=== PATIENT | female | born 1995 | race Caucasian/White ===

== ENCOUNTER 2023-09-25 07:18 | Outpatient (CLI) | payer OTHER, SELFPAY ==
[2023-09-25 07:55] LABS: Basophils Percent Auto 0.5 % (0.2-1.2); Eosinophils Absolute Auto 0.1 K/mm3 (0-0.3); Eosinophils Percent Auto 1.8 % (0-4.4); Hematocrit 41.6 % (37.0-47.0); Hemoglobin 14.2 g/dL (12.0-15.0); Immature Granulocyte Absolute 0.02 K/mm3 (0.00-0.031); Immature Granulocyte Percent A 0.3 % (0-0.5); Lymphocytes Absolute Auto 1.88 K/mm3 (0.9-3.2); Lymphocytes Percent Auto 30.6 % (18.3-44.2); Mean Corpuscular HGB Conc 34.1 g/dl (32-36); Mean Corpuscular Hemoglobin 30.5 pg (26-34); Mean Corpuscular Volume 89.3 fl (80-100); Mean Platelet Volume 10.5 fl (7.4-10.4); Monocytes Absolute Auto 0.4 K/mm3 (0.1-0.6); Neutrophils Absolute Auto 3.7 K/mm3 (1.3-6.7); Neutrophils Percent Auto 60.8 % (45.5-73.1); Platelet Count Result 220 k/mm3 (150-375); Red Blood Count 4.66 M/mm3 (4.2-5.4); Red Cell Distribution Width 12.3 % (11.5-14.5); White Blood Count 6.1 K/mm3 (4.5-10.0)
[2023-09-25 08:50] LABS: Vitamin D 25 Hydroxy 41.8 ng/mL
[2023-09-28 18:03] LABS: Insulin Level Total 17.6 uIU/mL
[2023-09-29 02:54] LABS: FSH 5.6 mIU/mL; Progesterone 0.5 ng/mL; Prolactin 5.2 ng/mL
[2023-09-30 13:48] LABS: Testosterone Free 12 pg/mL (0.1-6.4); Testosterone Total 87 ng/dL (2-45)
== END 2023-09-25 07:19 | disposition home or self-care (01) ==
LOC: ANHLAB 07:22
PROVIDERS: Visit Provider Nurse Practitioner Obstetrics & Gynecology
DX: N91.2 Amenorrhea, unspecified (principal)
CPT/HCPCS: 36415; 82306; 83001; 83002; 83498; 83525; 84144; 84146; 84402; 84403; 85025

== ENCOUNTER 2024-07-18 07:53 | Outpatient (CLI) | payer OTHER, SELFPAY ==
--- OUTSIDE RECORDS SUMMARY | 2024-07-18 07:58 | XMS_ITS | Clinical Summary ---
Author Organization CC [facility] [address] Address [address] [place] [address] Phone Care Team Providers Care Dog License Officer Supervisor Name Role Phone Melissa Aguilar NP Primary Care Provider [phone] Allergies Active Allergy Reactions Criticality Noted Date Comments Penicillin V Other (See comments) Low Reaction: ?hives, Penicillins Other (See comments) Low Hives Medications No known medications Active Problems Problem Noted Date Diagnosed Date Hearing loss of left ear 09/29/2017 Assessment & Plan (09/29/2017 2:34 PM CDT): Patient with a four-month history of perceived hearing loss. Patient did undergo a complete audiogram while in the office today the right ear was within normal limits the left ear showed to be within normal limits to mild sensorineural hearing loss at the 5000 hertz pushpa. Discrimination scores were 100% bilaterally and tympanogram bilaterally showed a type a pattern. 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 Strongly advised patient to utilize hearing protection in any instance where she will be exposed to loud noise. Advised patient to repeat audiogram in 1 year to monitor for any changes. Discussed with patient that she should return to the office if she experiences any changes in her hearing. Patient does state that she feels her hearing has improved from what it was at the onset of her symptoms for months ago. Patient to follow up as needed Class 1 obesity due to exces s calories without serious comorbidity with body mass index (BMI) of 32.0 to 32.9 in adult 09/10/2017 Assessment & Plan (09/10/2017 8:12 AM CDT): Obesity is newly identified. Discussed the patient's BMI. The BMI is above average; BMI management plan is completed. General weight loss/lifestyle modification strategies discussed (elicit support from others; identify saboteurs; non-food rewards, etc). PCOS (polycystic ovarian syndrome) 09/29/2016 Folliculitis 07/27/2013 Overview (06/19/2016): Folliculitis Medical examinations/reports status 07/26/2013 Overview (06/19/2016): Health care maintenance Excessive hair growth 07/26/2013 Overview (06/19/2016): Excess body and facial hair Hyperlipidemia 07/26/2013 Overview (06/20/2016): Hyperlipidemia Adiposity 07/26/2013 Overview (06/20/2016): Obesity Resolved Problems Problem Noted Date Diagnosed Date Resolved Date Acute streptococcal pharyngitis 05/09/2015 09/10/2017 Overview (06/19/2016): Strep throat Immunizations Immunization Administration Dates Next Due DTaP 5 Pertussis 12/10/2001, 9,05/16/1998,03/21,01/10/1998 HPV, Quadrivalent 07/27/2013,12/19/2011,10/09/19 12 Hep B, Adolescent or Pediatric 05/16/1998,1997,1997 Hib (HbOC) 02/18/1999, 9,03/21/1998,01/10 IPV 12/10/2001, 9,03/21/1998,01/10 Influenza, Split 12/19/2011 Influenza, Unspecified 01/18/2017 MMR 12/10/2001,11/07/1998 Meningococcal MCV4P (Menactra) 11/29/2014 Meningococcal Polysaccharide (Menomune) 11/20/2010 Tdap 11/05/2009 Varicella 10/09/2015,11/07/1998 Family History Medical History Relation Name Comments Other Maternal Grandmother Nephrec santos; Asthma Other 4 Family history of Asthma; Lung cancer Other 5 Family history of Cancer, lung; Other Other 6 Family history of MVP/palpitations; Allergies Other 7 Family history of Allergies; cat, dog, SULFA Hyperlipidemia Other 8 Family histor y of Hyperlipidemia; Dad cho 400's; Mom cho 200's. Other Other 9 Family history of Sudden age 51; unknown cause Breast cancer Other 10 Family history of Cancer, breast; RED 05/24/2015 -MGG-GM Diabetes Other 11 Family history of Diabetes mellitus; RED 05/24/2015 -Mother, grandparents Relation Name Status Comments Maternal Grandmother Other 1 Alive Other 2 Alive Other 3 Alive Other 4 Other 5 Other 6 Other 7 Other 8 Other 9 Other 10 Other 11 Social History Tobacco Use Types Packs/Day Years Used Date Smoking Tobacco: Never Smokeless Tobacco: Never Tobacco Cessation:Counseling Given: Not Answered Comments:around a lot of second hand smoke Alcohol Use Standard Drinks/Week Comments No 0 (1 standard drink = 0.6 oz pur e alcohol) Comments No Sex and Gender Information Value Date Recorded Sex Assigned at Not on file Legal Sex Female 10:37 AM MANAGER FACILITY Gender Identity Not on file Sexual Orientation Not on file Occupation Industry Job Start Date Job End Date Accounting Not on file Not on file Not on file History Length Weight Head Circum Date/Time Gestation Age D/C Weight APGARs Delivery Method Feeding 1995 6-6 Twin B GDM A+/O+: C/s fo r breech Obstetrics History Para Term AB IAB SAB Ectopic Multiple Livin g Live Births 0 0 0 0 0 0 0 0 0 0 0 Last Filed Vital Signs Vital Sign Reading Time Taken Comments Blood Pressure 122/70 10/22/2022 9:36 AM CDT Pulse 91 05/21/2019 2:45 AM MANAGER FACILITY Temperature 36.6 C (97.8 F) 10/11/2019 8:25 AM CDT Respiratory Rate 18 05/21/2019 2:45 AM MANAGER FACILITY Oxygen Saturation 100% 05/21/2019 2:45 AM MANAGER FACILITY Inhaled Oxygen Concentration - - Weight 99.3 kg (219 lb) 10/22/2022 9:36 AM CDT Height 162.6 cm (5' 4 ) 10/22/2022 9:36 AM CDT Body Mass Index 37.59 10/22/2022 9:36 AM CDT Plan of Treatment Health Maintenance Due Date Last Done Comments Hepatitis C Screening 1995 Depression Screening 09/10/2018 09/10/2017 Cervical Cancer Screening 10/23/2023 10/22/2022, Regular Well Visit/Exam 18-64 10/23/2023 10/22/2022, 10/17/2021, 10/15/2020, Additional history exists Influenza Vaccine (#1) 2023 01/18/2017, 2011 DTaP/Tdap/Td Vaccine (8 - Td or Tdap) 08/08/2032 08/08/2022, 11/05/2009, 12/10/2001, Additional history exists Hepatitis B Screening Completed 05/16/1998 , 1995, 1995 HPV Vaccines Completed 07/27/2013, 07/2011, 10/09/2011 Varicella Vaccines Completed 10/09/2015, 11/07/1998 Pneumococcal vaccine <65 Aged Out No longer eligible based on patient's age to complete this topic Procedures Procedure Name Priority Date/Time Associated Diagnosis Comments PAP WITH REFLEX TO HIGH RISK HPV Routine 10/22/2022 11:53 AM CDT Screening for malignant neoplasm of the cervix from Last 3 Months or Most Recently Relevant to Health Maintenance Results * Pap with reflex to High Risk HPV and Genotyping (Cytology Component) (10/22/2022 11:53 AM CDT) Thin prep (Pap test) 10/22/2022 11:53 AM CDT 10/22/2022 11:53 AM CDT Narrative PATHOLOGY CH - 10/24/2022 3:21 PM CDT [facility] Department of Pathology [address] [place], [place] [id number] Final Report Note to Patients: This report may contain a detailed description of human tissue sent by a health care provider to the laboratory for pathologic evaluation. The content of this report is essential for diagnosis and may provide important critical findings. This information may be unfamiliar to patients to review without a medical professional present. It is advised that the patient review this report in the presence of a health care provider who can answer questions and explain the details. Patient Name: AMPARO LAY V. Address: [address] [place] [address] Gender: F : 1995 (Age: 26) Service: Location: N : [id number] [facility] #: [id number] Patient Type: SPECIMEN Taken: 10/22/2022 Received: 10/22/2022 Accessioned:: 10/23/2022 Reported: 10/24/2022 Physician(s): MD Juliana Smart MD Diagnosis: SOURCE OF SPECIMEN Imaged Thinprep Pap Test w/ Reflex HPV - Performance Improvement Coordinator Cytologic Material: STATEMENT OF ADEQUACY - Satisfactory for evaluation; endocervical/transformation zone component present GENERAL CATEGORIZATION: - Negative for intraepithelial lesion or malignancy ABHINAV Ferrari(ASCP) Report Electronically Reviewed and Signed Out By ABHINAV Ferrari(ASCP) 10/24/2022 15:21:50Specimen(s) Received: A: Imaged Thinprep Pap Test w/ Reflex HPV - Performance Improvement Coordinator Cytologic Material Clinical History: Last Menstrual Period: 10/02/22 Menstrual History: Previous Negative Pap The Pap test is a screening test used to aid in the detection of cervical cancer and its precursors. It should not be the sole means by which malignant and premalignant lesions are diagnosed. Both false negative and false positive results may occur. It also has poor sensitivity for the detection of endometrial lesions and should not be used to evaluate suspected endometrial abnormalities. For these reasons it is most important to obtain Pap tests at regular intervals. The performance characteristics of some immunohistochemical stains, fluorescence in-situ hybridization tests and immunophenotyping by flow cytometry cited in this report (if any) were determined by the Surgical Pathology Department at [facility] as part of an ongoing software quality specialist program and in compliance with federally mandated regulations drawn from the Clinical Laboratory Improvement Act of 1988 (CLIA '88). Some of these tests rely on the use of analyte specific reagents and are subject to specific labeling requirements by the US Food and Drug Administration. Such diagnostic tests may only be performed in a facility that is certified by the Department of Health and Human Services as a high complexity laboratory under CLIA '88. The FDA has determined that such clearance or approval is not necessary. This test is used for clinical purposes. It should not be regarded as investigational or for research. Nevertheless, federal rules concerning the medical use of analyte specific reagents require that the following disclaimer be attached to the report: This test was developed and its performance characteristics determined by the Surgical Pathology Department [facility]. It has not been cleared or approved by the U. S. Food and Drug Administration. Juliana Avilez MD LAB CYTOLOGY ORDERABL ES Final Result Performing Organization Address City/State/ZIP Co sd Phone Number [facility] [address] [place] [address] from Last 3 Months or Most Recently Relevant to Health Maintenance Insurance [facility] CHOICE PLUS [facility] HMO/PPO Address: [facility] [address] [place] [address] CIGNA CIGNA Care Teams Dog License Officer Supervisor Relationship Specialty Start Date End Date Melissa Aguilar NP [address] [facility] [address] [place] [address] PCP - General 05/21/19
--- OUTSIDE RECORDS SUMMARY | 2024-07-18 07:58 | XMS_ITS | Referral Summary ---
Author Organization [facility] [address] Address [address] [place] [address] Phone Care Team Providers Care Visitor Use Assistant Name Role Phone Melissa Aguilar NP Primary Care Provider Allergies Active Allergy Reactions Criticality Noted Date [...] Polysaccharide (Menomune) 11/20/2010 Tdap 11/05/2009 Varicella 10/09/2015,11/07/1998 Social History Tobacco Use Types Packs/Day Years Used Date Smoking Tobacco: Never Smokeless Tobacco: Never Tobacco Cessation:Counseling Given: Not Answered Comments:around a lot of second hand smoke Alcohol Use Standard Drinks/Week Comments No 0 (1 standard drink = 0.6 oz pur e alcohol) Comments No Sex and Gender Information Value Date Recorded Sex Assigned at Not on file Legal Sex Female 10:37 AM EXECUTIVE VICE PRESIDENT BUSINESS DEVELOPMENT Gender Identity Not on file Sexual Orientation Not on file Occupation Industry Job Start Date Job End Date Accounting Not on file Not on file Not on file Last Filed Vital Signs Vital Sign Reading Time Taken Comments Blood Pressure 122/70 10/22/2022 9:36 AM CDT Pulse 91 05/21/2019 2:45 AM EXECUTIVE VICE PRESIDENT BUSINESS DEVELOPMENT Temperature 36.6 C (97.8 F) 10/11/2019 8:25 AM CDT Respiratory Rate 18 05/21/2019 2:45 AM EXECUTIVE VICE PRESIDENT BUSINESS DEVELOPMENT Oxygen Saturation 100% 05/21/2019 2:45 AM EXECUTIVE VICE PRESIDENT BUSINESS DEVELOPMENT Inhaled Oxygen Concentration - - Weight 99.3 kg (219 lb) 10/22/2022 9:36 AM CDT Height 162.6 cm (5' 4 ) 10/22/2022 9:36 AM CDT Body Mass Index 37.59 10/22/2022 9:36 AM CDT Plan of Treatment Not on file Procedures Procedure Name Priority Date/Time Associated Diagnosis [...] PATHOLOGY CH - 10/24/2022 3:21 PM CDT [facility] Department of Pathology [address] [place], [place] [id number] Final Report Note to Patients: This report [...] details. Patient Name: AMPARO LAY V. Address: [address] [place] [address] Gender: F : 1995 (Age: 26) Service: Location: N : [id number] [facility] #: [id number] Patient Type: SPECIMEN Taken: 10/22/2022 Received: 10/22/2022 Accessioned:: 10/23/2022 Reported: 10/24/2022 Physician(s): MD Juliana Smart MD Diagnosis: SOURCE OF SPECIMEN Imaged Thinprep Pap Test w/ Reflex HPV - High School Music Teacher Cytologic Material: STATEMENT OF ADEQUACY - Satisfactory for evaluation; endocervical/transformation zone component present GENERAL CATEGORIZATION: - Negative for intraepithelial lesion or malignancy ABHINAV Ferrari(ASCP) Report Electronically Reviewed and Signed Out By ABHINAV Ferrari(ASCP) 10/24/2022 15:21:50Specimen(s) Received: A: Imaged Thinprep Pap Test w/ Reflex HPV - High School Music Teacher Cytologic Material Clinical History: Last Menstrual Period: [...] determined by the Surgical Pathology Department at [facility] as part of an ongoing senior quality methods specialist program and in compliance with federally [...] characteristics determined by the Surgical Pathology Department [facility]. It has not been cleared or approved by the U. S. Food and Drug Administration. Juliana Avilez MD LAB CYTOLOGY ORDERABL ES Final Result Performing Organization Address City/State/[facility] Co de Phone Number PATHOLOGY [address] [place] [address] from Last 3 Months or Most Recently Relevant to Health Maintenance Insurance [facility] [place] [address] CIGNA CIGNA Care Teams Visitor Use Assistant Relationship Specialty Start Date End Date Melissa Aguilar NP [address] [place] [address] PCP - General 05/21/19
[2024-07-19 02:48] LABS: Progesterone 0.6 ng/mL
== END 2024-07-18 07:54 | disposition home or self-care (01) ==
PROVIDERS: Visit Provider Nurse Practitioner Obstetrics & Gynecology
DX: R79.89 Other specified abnormal findings of blood chemistry (principal); N97.0 Female infertility associated with anovulation
CPT/HCPCS: 36415; 84144; 84402; 84403

== ENCOUNTER 2024-08-17 07:59 | Outpatient (CLI) | payer OTHER, SELFPAY ==
--- OUTSIDE RECORDS SUMMARY | 2024-08-17 08:03 | XMS_ITS | Referral Summary ---
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 on file Not on file Last Filed Vital Signs Vital Sign Reading Time Taken Comments Blood Pressure 122/70 10/22/2022 9:36 AM CDT Pulse 91 05/21/2019 2:45 AM WIRE DROPPER Temperature 36.6 C (97.8 F) 10/11/2019 8:25 AM CDT Respiratory Rate 18 05/21/2019 2:45 AM WIRE DROPPER Oxygen Saturation 100% 05/21/2019 2:45 AM WIRE DROPPER Inhaled Oxygen Concentration - - Weight 99.3 kg (219 lb) 10/22/2022 9:36 AM CDT Height 162.6 cm (5' 4) 10/22/2022 9:36 AM CDT Body Mass Index [...] PATHOLOGY CH - 10/24/2022 3:21 PM CDT [facility] Department of Pathology [address] [place], [place] [id number] Final Report Note to Patients: This report [...] details. Patient Name: AMPARO LAY V. Address: [address] [place] [address] Gender: F : 1995 (Age: 26) Service: Location: N : [id number] [facility] #: [id number] Patient Type: SPECIMEN Taken: 10/22/2022 Received: 10/22/2022 Accessioned:: 10/23/2022 Reported: 10/24/2022 Physician(s): MD Juliana Smart MD Diagnosis: SOURCE OF SPECIMEN Imaged Thinprep Pap Test w/ Reflex HPV - Motorcyles Final Inspector Cytologic Material: STATEMENT OF ADEQUACY - Satisfactory for evaluation; endocervical/transformation zone component present GENERAL CATEGORIZATION: - Negative for intraepithelial lesion or malignancy ABHINAV Ferrari(ASCP) Report Electronically Reviewed and Signed Out By ABHINAV Ferrari(ASCP) 10/24/2022 15:21:50Specimen(s) Received: A: Imaged Thinprep Pap Test w/ Reflex HPV - Motorcyles Final Inspector Cytologic Material Clinical History: Last Menstrual Period: [...] determined by the Surgical Pathology Department at [facility] as part of an ongoing director of quality control program and in compliance with federally mandated [...] characteristics determined by the Surgical Pathology Department [facility]. It has not been cleared or approved by the U. S. Food and Drug Administration. Juliana Avilez MD LAB CYTOLOGY ORDERABL ES Final Result Performing Organization Address City/State/[facility] Co de Phone Number PATHOLOGY [address] [place] [address] from Last 3 Months or Most Recently Relevant to Health Maintenance Insurance [facility] CHOICE PLUS CIGNA CIGNA Care Teams Brass Bobbin Winder Relationship Specialty Start Date End Date Melissa Aguilar NP [address] [place] [address] PCP - General 05/21/19
--- OUTSIDE RECORDS SUMMARY | 2024-08-17 08:03 | XMS_ITS | Clinical Summary ---
Author Organization CC [facility] [address] Address [address] [place] [address] Phone Care Team Providers Care Rn Interventional Name Role Phone Melissa Aguilar NP Primary Care Provider [phone] Allergies Active Allergy Reactions Criticality Noted Date [...] on file Legal Sex Female 10:37 AM LEAD WELDER Gender Identity Not on file Sexual Orientation [...] AM CDT Pulse 91 05/21/2019 2:45 AM LEAD WELDER Temperature 36.6 C (97.8 F) 10/11/2019 8:25 AM CDT Respiratory Rate 18 05/21/2019 2:45 AM LEAD WELDER Oxygen Saturation 100% 05/21/2019 2:45 AM LEAD WELDER Inhaled Oxygen Concentration - - Weight 99.3 [...] 10/17/2021, 10/15/2020, Additional history exists Influenza Vaccine (Season Ended) 2024 01/18/2017, 12/19/2011 DTaP/Tdap/Td Vaccine (8 - Td or Tdap) [...] PATHOLOGY CH - 10/24/2022 3:21 PM CDT [facility] Department of Pathology [address] [place], [place] [id number] Final Report Note to Patients: This report [...] details. Patient Name: AMPARO LAY V. Address: [address] [place] [address] Gender: F : 1995 (Age: 26) Service: Location: N : [id number] [facility] #: [id number] Patient Type: SPECIMEN Taken: 10/22/2022 Received: 10/22/2022 Accessioned:: 10/23/2022 Reported: 10/24/2022 Physician(s): MD Juliana Smart MD Diagnosis: SOURCE OF SPECIMEN Imaged Thinprep Pap Test w/ Reflex HPV - Stage Settings Painter Cytologic Material: STATEMENT OF ADEQUACY - Satisfactory for evaluation; endocervical/transformation zone component present GENERAL CATEGORIZATION: - Negative for intraepithelial lesion or malignancy ABHINAV Ferrari(ASCP) Report Electronically Reviewed and Signed Out By ABHINAV Ferrari(ASCP) 10/24/2022 15:21:50Specimen(s) Received: A: Imaged Thinprep Pap Test w/ Reflex HPV - Stage Settings Painter Cytologic Material Clinical History: Last Menstrual Period: [...] determined by the Surgical Pathology Department at [facility] as part of an ongoing quality coordinator program and in compliance with federally mandated [...] characteristics determined by the Surgical Pathology Department [facility]. It has not been cleared or approved by the U. S. Food and Drug Administration. Juliana Avilez MD LAB CYTOLOGY ORDERABL ES Final Result Performing Organization Address City/State/ZIP Co ri Phone Number [facility] [address] [place] [address] from Last 3 Months or Most Recently Relevant to Health Maintenance Insurance [facility] CHOICE PLUS CIGNA CIGNA Care Teams Rn Interventional Relationship Specialty Start Date End Date Melissa Aguilar NP [address] [facility] [address] [place] [address] PCP - General 05/21/19
[2024-08-17 11:23] LABS: Hemoglobin A1C 4.7 % (<5.7)
[2024-08-18 00:43] LABS: Progesterone 6.9 ng/mL
== END 2024-08-17 08:00 | disposition home or self-care (01) ==
LOC: ANHLAB 08:00
PROVIDERS: Visit Provider Nurse Practitioner Obstetrics & Gynecology
DX: N97.0 Female infertility associated with anovulation (principal); E28.2 Polycystic ovarian syndrome
CPT/HCPCS: 36415; 83036; 84144

== ENCOUNTER 2024-12-16 16:16 | Outpatient (CLI) | payer OTHER, SELFPAY ==
--- NOTE | ~2024-12-16 | XR_ITS ---
EXAMINATION: XR abdomen/kub 1V, 12/16/2024 16:21 CDT HISTORY: right ureteral stone COMPARISON: No comparisons available. Technique: 3 view. Findings: Bowel gas pattern unremarkable. No obstruction. Moderate fecal content, no renal or ureteral calculi definitely identified. No acute osseous abnormality. Impression: 1. No acute abnormality. Reviewed, dictated and finalized at location P. Impression: 1. No acute abnormality.
== END 2024-12-16 16:17 | disposition home or self-care (01) ==
LOC: ANHIMG 16:21
PROVIDERS: Visit Provider Urology
DX: N20.1 Calculus of ureter (principal)
CPT/HCPCS: 74018